=== PATIENT | female | born 1965 | race Hispanic/Latino ===

== ENCOUNTER 2017-07-12 13:56 | Emergency (ER) | payer OTHER ==
[2017-07-12 13:56] VITALS: BMI 19.6
[2017-07-12 14:02] VITALS: RESP 18
[2017-07-12] MEDS ORDERED: Oxycodone/Acetaminophen 5/325 mg Tab PO STA (14:25)
[2017-07-12] MEDS ORDERED: Oxycodone/Acetaminophen 5/325 mg Tab ONE (14:42)
--- NOTE | 2017-07-12 15:39 | CT ---
PROCEDURE: CT HEAD WITHOUT CONTRAST. HISTORY: head injury, nausea COMPARISON: None available. TECHNIQUE: Axial computed tomography images were obtained through the head/brain without intravenous contrast. Radiation dose: Total exam DLP = 765.90 mGy-cm. This CT exam was performed using one or more of the following dose reduction techniques: Automated exposure control, adjustment of the mA and/or kV according to patient size, and/or use of iterative reconstruction technique. FINDINGS: HEMORRHAGE: No intracranial hemorrhage. BRAIN: Generalized atrophy. No mass effect or edema. The adkins-white matter differentiation appears intact. Evidence of cerebellar atrophy with prominent CSF space. VENTRICLES: No hydrocephalus. CALVARIUM: Unremarkable. PARANASAL SINUSES: Unremarkable as visualized. No significant inflammatory changes. MASTOID AIR CELLS: Unremarkable as visualized. No inflammatory changes. OTHER FINDINGS: None. IMPRESSION: No acute intracranial pathology identified. Generalized and cerebellar atrophy with prominent CSF space noted in the region of the cerebellum.
--- NOTE | 2017-07-12 15:43 | RAD ---
PROCEDURE: Left Knee Radiographs. HISTORY: Pain. COMPARISON: None. FINDINGS: BONES: No acute fracture. JOINTS: Unremarkable. JOINT EFFUSION: None. OTHER FINDINGS: None. IMPRESSION: No demonstrated fracture or dislocation.
[2017-07-12] MEDS ORDERED: Alum-Mag Hydrox-Simethicone Susp (30 mL) ONE (16:54)
--- NOTE | 2017-07-12 16:54 | ED PDOC ---
Lower Extremity Pain/Injury Time Seen by Provider: 07/12/17 14:18 Chief Complaint (Nursing): Trauma Chief Complaint (Provider): Fall, knee injury, nausea History Per: Patient History/Exam Limitations: no limitations Onset/Duration Of Symptoms: Days Current Symptoms Are (Timing): Still Present Additional Complaint(s): 52 yo female with history of MS presents after a fall. Pt states she was walking without dizziness, nausea, chest pain or SOB when she tripped. Pt states she hit the left knee on the floor and her left forehead but she was wearing a head band. Pt denies LOC. Pt reports nausea. Past Medical History Vital Signs: Last Vital Signs Temp 97.8 F 07/12/17 13:59 Pulse 81 07/12/17 13:59 Resp 18 07/12/17 13:59 BP Pulse Ox 99 07/12/17 13:59 - Medical History PMH: Anxiety (on meds), COPD, Multiple Sclerosis Other PMH: Unknown? Cardiac, brain abnormality? - Family History Family History: States: No Known Family Hx - Home Medications Home Medications: Ambulatory Orders Medication Instructions Recorded Acetaminophen/Oxycodone Hydr 1 tab PO BID 07/27/14 [Percocet 325 mg-2.5 mg] Carisoprodol 350 mg PO Q8 07/27/14 Clonazepam 0.5 mg PO BID 07/27/14 Fluticasone/Salmeterol 100/50 1 dsk IH DAILY 07/27/14 [Advair Diskus 100/50] Glatiramer Acetate [Copaxone] 20 mg SC DAILY 07/27/14 Ibuprofen 600 mg PO PRN PRN 07/27/14 Tiotropium [place] Inhaler 1 inhaler INH DAILY 07/27/14 [Spiriva Inhalation Handihaler Device] Naproxen [Naprosyn] 500 mg PO Q12H #20 tab 04/11/15 Oxycodone HCl/Acetaminophen 1 tab PO Q8H #10 tab 04/11/15 [Percocet 325 mg-5 mg] - Allergies Allergies/Adverse Reactions: Allergies Allergy/AdvReac Type Severity Reaction Status Date / Time nitrofurantoin Allergy ANAPHYLAXIS Verified 07/12/17 13:58 [From Macrobid] Physical Exam - Reviewed Nursing Documentation Reviewed: Yes Vital Signs Reviewed: Yes - Physical Exam Appears: Positive for: Well, Non-toxic, No Acute Distress Head Exam: Positive for: ATRAUMATIC, NORMAL INSPECTION, NORMOCEPHALIC Skin: Positive for: Warm. Negative for: Normal Color (Abrasion of the left knee ) Eye Exam: Positive for: EOMI, Normal appearance, PERRL ENT: Positive for: Normal ENT Inspection Neck: Positive for: Normal, Painless ROM Cardiovascular/Chest: Positive for: Regular Rate, Rhythm Respiratory: Positive for: Normal Breath Sounds. Negative for: Accessory Muscle Use Back: Positive for: Normal Inspection Extremity: Positive for: Normal ROM, Tenderness, Swelling (Left patella ). Negative for: Deformity Neurologic/Psych: Positive for: Alert, Oriented - ECG O2 Sat by Pulse Oximetry: 99 Medical Decision Making Medical Decision Making: x-ray without fracture Disposition - Clinical Impression Clinical Impression: Head injury, Knee contusion, Abrasion - Patient ED Disposition Is Patient to be Admitted: No - Disposition Referrals: Keyon Altamirano MD [Primary Care Provider] - Disposition: Routine/Home Disposition Time: 17:10 Condition: GOOD Additional Instructions: Please follow-up with PMD or orthopedics if pain continues. Instructions: Abrasion (ED) Forms: [facility] ([place]), [facility] ED School/Work Excuse
[2017-07-12 17:39] VITALS: BP 126/76; PULSE 76; TEMP 98; O2SAT 100
== END 2017-07-12 17:39 | disposition home or self-care (01) ==
LOC: H.ER 13:56
DX: S09.90XA Unspecified injury of head, initial encounter (principal); S80.02XA Contusion of left knee, initial encounter; W19.XXXA Unspecified fall, initial encounter; Y92.89 Other specified places as the place of occurrence of the external cause; F41.9 Anxiety disorder, unspecified; G35 Multiple sclerosis; J44.9 Chronic obstructive pulmonary disease, unspecified

== ENCOUNTER 2018-03-27 14:42 | Emergency (ER) | payer OTHER ==
[2018-03-27 14:43] VITALS: BMI 19.6
[2018-03-27 14:48] VITALS: O2SAT 100
[2018-03-27] MEDS ORDERED: Sodium Chloride 0.9% 1,000 ML IV STA (15:24)
--- NOTE | 2018-03-27 15:28 | ED PDOC ---
HPI: General Adult Time Seen by Provider: 03/27/18 15:16 Chief Complaint (Nursing): Dizziness/Lightheaded Chief Complaint (Provider): Dizziness History Per: Patient History/Exam Limitations: no limitations Onset/Duration Of Symptoms: Mins (30) Current Symptoms Are (Timing): Still Present Additional Complaint(s): 52 year old female, with a PMHx of MS, presenting for evaluation of dizziness onset 30 minutes prior to arrival. Patient reports a room spinning sensation ex acerbated when she moves her head, and mitigated by laying still. Patient reports her dizziness is associated with nausea, chest pain, and palpitations. Patient otherwise denies any focal weakness or headache. Past Medical History Reviewed: Historical Data, Nursing Documentation, Vital Signs Vital Signs: Last Vital Signs Temp 98.1 F 03/27/18 14:46 Pulse 97 H 03/27/18 14:46 Resp 16 03/27/18 14:46 BP 128/76 03/27/18 14:46 Pulse Ox 100 03/27/18 14:46 - Medical History PMH: Anxiety (on meds), COPD, Multiple Sclerosis - Surgical History Surgical History: No Surg Hx - Family History Family History: States: Unknown Family Hx - Home Medications Home Medications: Ambulatory Orders Medication Instructions Recorded Acetaminophen/Oxycodone Hydr 1 tab PO BID 07/27/14 [Percocet 325 mg-2.5 mg] Carisoprodol 350 mg PO Q8 07/27/14 Clonazepam 0.5 mg PO BID 07/27/14 Fluticasone/Salmeterol 100/50 1 dsk IH DAILY 07/27/14 [Advair Diskus 100/50] Glatiramer Acetate [Copaxone] 20 mg SC DAILY 07/27/14 Ibuprofen 600 mg PO PRN PRN 07/27/14 Tiotropium [place] Inhaler 1 inhaler INH DAILY 07/27/14 [Spiriva Inhalation Handihaler Device] Naproxen [Naprosyn] 500 mg PO Q12H #20 tab 04/11/15 Oxycodone HCl/Acetaminophen 1 tab PO Q8H #10 tab 04/11/15 [Percocet 325 mg-5 mg] Meclizine [Meclizine*] 25 mg PO Q8 #15 tab 03/27/18 - Allergies Allergies/Adverse Reactions: Allergies Allergy/AdvReac Type Severity Reaction Status Date / Time nitrofurantoin Allergy ANAPHYLAXIS Verified 03/27/18 14:46 [From Macrobid] Review of Systems ROS Statement: Except As Marked, All Systems Reviewed And Found Negative Cardiovascular: Positive for: Chest Pain, Palpitations Gastrointestinal: Positive for: Nausea Neurological: Positive for: Dizziness. Negative for: Weakness, Headache Physical Exam - Reviewed Nursing Documentation Reviewed: Yes Vital Signs Reviewed: Yes - Physical Exam Appears: Positive for: Non-toxic, No Acute Distress Head Exam: Positive for: ATRAUMATIC, NORMAL INSPECTION, NORMOCEPHALIC Skin: Positive for: Normal Color, Warm, Dry. Negative for: Rash Eye Exam: Positive for: EOMI, Normal appearance, PERRL ENT: Positive for: Normal ENT Inspection Neck: Positive for: Normal, Painless ROM, Supple Cardiovascular/Chest: Positive for: Regular Rate, Rhythm. Negative for: Murmur Respiratory: Positive for: Normal Breath Sounds. Negative for: Respiratory Distress Gastrointestinal/Abdominal: Positive for: Normal Exam, Soft. Negative for: Tenderness Back: Positive for: Normal Inspection. Negative for: L CVA Tenderness, R CVA Tenderness, Vertebral Tenderness Extremity: Positive for: Normal ROM. Negative for: Pedal Edema, Deformity Neurologic/Psych: Positive for: Alert, Oriented. Negative for: Motor/Sensory Deficits - Laboratory Results Result Diagrams: 03/27/18 15:46 03/27/18 15:46 - ECG O2 Sat by Pulse Oximetry: 100 (RA) Pulse Ox Interpretation: Normal - Progress Re-evaluation Time: 17:40 Condition: Improved Medical Decision Making Medical Decision Makin Plan: -EKG -CMP -CBC -Meclizine 25mg IV -NS 1L IV at 100mL.hour -Reevaluation Scribe Attestation: Documented by Vikram Roberson, acting as a scribe for Calin Mueller MD. Provider Scribe Attestation: All medical record entries made by the Scribe were at my direction and pe rsonally dictated by me. I have reviewed the chart and agree that the record accurately reflects my personal performance of the history, physical exam, medical decision making, and the department course for this patient. I have also personally directed, reviewed, and agree with the discharge instructions and disposition. Disposition - Clinical Impression Clinical Impression: Vertigo - Patient ED Disposition Is Patient to be Admitted: No Counseled Patient/Family Regarding: Studies Performed, Diagnosis, Need For Followup, Rx Given - Disposition Referrals: Narendra Quiroga MD [Staff Provider] - Disposition: Routine/Home Disposition Time: 17:40 Condition: FAIR Prescriptions: Meclizine [Meclizine*] 25 mg PO Q8 #15 tab Instructions: Vertigo (a Type of Dizziness), Dehydration, Adult (DC) Forms: [facility] ([place]ali)
[2018-03-27 15:52] LABS: BASO % 0.4 % (0.0-2.0); EOS # 1.3 K/uL (0.0-0.7); EOS % 23.9 % (0.0-4.0); HEMOGLOBIN 12.4 g/dL (12.0-16.0); LYMPH # 1.7 K/uL (1.0-4.3); MEAN CELL VOLUME 96.6 fl (81.0-99.0); MEAN CORPUSCULAR HEMOGLOBIN 33.2 pg (27.0-31.0); MEAN CORPUSCULAR HGB CONC 34.3 g/dL (33.0-37.0); MEAN PLATELET VOLUME 6.9 fl (7.2-11.7); MONO # 0.3 K/uL (0.0-0.8); MONO % 6.3 % (0.0-10.0); NEUT # 2.1 K/uL (1.8-7.0); NEUT % 38.4 % (50.0-75.0); NRBC % 0.1 % (0.0-0.0); PLATELET COUNT 337 K/uL (130-400); RBC 3.73 Mil/uL (3.80-5.20); RED CELL DISTRIBUTION WIDTH 13.9 % (11.5-14.5); WHITE BLOOD COUNT 5.5 K/uL (4.8-10.8)
[2018-03-27 16:02] LABS: ALB/GLOB RATIO 1.1 (1.0-2.1); ALBUMIN 4.1 g/dL (3.5-5.0); ALT/SGPT 51 U/L (9-52); AST/SGOT 48 U/L (14-36); BLOOD UREA NITROGEN 24 mg/dl (7-17); CALCIUM 9.7 mg/dL (8.4-10.2); GFR NON-AFRICAN AMERICAN > 60
[2018-03-27 17:54] LABS: EOSINOPHIL 25 % (0-7); LYMPHOCYTE 28 % (20-50); MONOCYTE 3 % (0-10); NEUTROPHIL 44 % (42-75); PLATELET ESTIMATE MARKEDLY INCREASED (NORMAL); TOTAL CELLS COUNTED 100
[2018-03-27 17:55] LABS: ANISOCYTOSIS SLIGHT
[2018-03-27 19:31] VITALS: BP 124/67; PULSE 76; RESP 18; TEMP 97.8
--- NOTE | 2018-03-28 07:16 | CARD ---
APPROVED REPORT Date of service: 03/27/2018 EKG Measurement Heart [id number] <Conclusion> Normal sinus rhythm Normal ECG
== END 2018-03-27 18:19 | disposition home or self-care (01) ==
LOC: H.ER 14:42
DX: R42 Dizziness and giddiness (principal); F41.9 Anxiety disorder, unspecified; G35 Multiple sclerosis; Z88.1 Allergy status to other antibiotic agents
CPT/HCPCS: 80053; 85025; 93005; 99282; J7030